=== PATIENT | female | born 1975 ===

== ENCOUNTER → 2020-08-21 08:00 | Outpatient (CLI) | payer OTHER ==
[~2020-08-21] VITALS: Ht 154.9 cm; Wt 57.2 kg
[~2020-08-21 08:00] MED LIST: B COMPLEX1 EACH PO; B12 ACTIVE1000 MCG PO; D3-200050 MCG PO; IRON236 MG PO
== END | disposition home or self-care (01) ==
LOC: LAB 08:00 → SURH 08-23 07:00 → EDSTATUS 08-23 10:30 → SURH 08-23 10:30
PROVIDERS: ATTEND Obstetrics & Gynecology
DX: I10 Essential (primary) hypertension (principal); J45.998 Other asthma; N84.0 Polyp of corpus uteri; Z01.810 Encounter for preprocedural cardiovascular examination; Z01.811 Encounter for preprocedural respiratory examination; D25.1 Intramural leiomyoma of uterus; N91.0 Primary amenorrhea; N80.3 Endometriosis of pelvic peritoneum

== ENCOUNTER 2020-12-31 09:45 | Inpatient (IN) | payer OTHER ==
[~2020-12-31] VITALS: Ht 154.9 cm; Wt 58.1 kg
[2021-01-04] MEDS ORDERED: Tylenol #3 PO (13:21)
[2021-01-04] MEDS ORDERED: NAPR500T14 PO (13:21)
== END 2021-01-04 14:12 | disposition home or self-care (01) | DRG 743 ==
LOC: ADM 09:45 → O/R 01-03 06:00 → SURH 01-03 08:30 → EDBD 01-03 09:45 → EDSTATUS 01-03 09:45 → CIR.AMB 01-03 09:45 → SURH 01-03 09:45 → OB/GYN 01-03 15:27
PROVIDERS: ADMIT Obstetrics & Gynecology; ATTEND Obstetrics & Gynecology
PROC: 0UB77ZZ Excision of Bilateral Fallopian Tubes, Via Natural or Artificial Opening (ICD-10-PCS; 2021-01-03)
PROC: 0JQC0ZZ Repair Pelvic Region Subcutaneous Tissue and Fascia, Open Approach (ICD-10-PCS; 2021-01-03)
PROC: 0USG7ZZ Reposition Vagina, Via Natural or Artificial Opening (ICD-10-PCS; 2021-01-03)
PROC: 0TJB8ZZ Inspection of Bladder, Via Natural or Artificial Opening Endoscopic (ICD-10-PCS; 2021-01-03)
PROC: 0UT9FZZ Resection of Uterus, Via Natural or Artificial Opening With Percutaneous Endoscopic Assistance (ICD-10-PCS; principal; 2021-01-03 08:30)
DX: D25.1 Intramural leiomyoma of uterus (principal); D25.2 Subserosal leiomyoma of uterus; N81.11 Cystocele, midline; N80.0 Endometriosis of uterus; N80.2 Endometriosis of fallopian tube; N72 Inflammatory disease of cervix uteri; N73.6 Female pelvic peritoneal adhesions (postinfective); N94.5 Secondary dysmenorrhea